=== PATIENT | female | born 1955 ===

== ENCOUNTER 2018-07-30 10:59 | Emergency (ER) | payer OTHER ==
[~2018-07-30] VITALS: Ht 152.4 cm; Wt 61.7 kg
[2018-07-30] MEDS ORDERED: TOBRAMYCIN-DEXAM5 ML OPHT (11:15)
[2018-07-30] MEDS ORDERED: LAMOTRIGINE50 MG PO (11:16)
== END 2018-07-30 20:13 | disposition home or self-care (01) ==
LOC: ER 10:59
DX: T78.3XXA Angioneurotic edema, initial encounter (principal); H57.89 Other specified disorders of eye and adnexa; L29.8 Other pruritus; T49.5X5A Adverse effect of ophthalmological drugs and preparations, initial encounter; Y92.89 Other specified places as the place of occurrence of the external cause